=== PATIENT | female | born 1980 | race Two or more races ===

== ENCOUNTER → 2023-04-04 08:32 | Outpatient (CLI) | payer OTHER ==
[~2023-04-04 08:32] MED LIST: OSEL75CA PO; TUSSI PRES-B L480 ML PO
[2023-04-04 09:44] LABS: HEMATOCRIT 37.9 % (36.0-45.00); HEMOGLOBIN 13.3 g/dL (12.0-15.00); MEAN CELL VOLUME 84.6 fL (80.00-100.00); MEAN CORPUSCULAR HEMOGLOBIN 29.6 pg (27.00-32.0); PLATELET COUNT 254 K/uL (150-450); RED BLOOD COUNT 4.48 M/uL (4.00-6.00); RED CELL DISTRIBUTION WIDTH 12.9 % (11.5-14.5)
[2023-04-04 10:13] LABS: ALBUMIN 3.8 gm/dL (3.4-5.0); BILIRUBIN TOTAL 0.45 mg/dL (0.3-1.2); CALCIUM 8.9 mg/dL (8.5-10.1); CHOL HDL RATIO 2.8 (0-5.0); CREATININE SERUM 0.66 mg/dL (0.55-1.02); FREE TRIODOTIRONINE 2.69 pg/ml (2.18-3.98); GFR 99.19; GLOBULINA 3.4 G/DL (2.4-3.5); POTASSIUM 3.95 mEq/L (3.5-5.1); T4 TOTAL 5.36 UG/DL (4.8-13.9); TOTAL PROTEIN 7.2 gm/dL (6.4-8.2); TSH 0.789 uIU/mL (0.358-3.74)
[2023-04-04 11:14] LABS: VITAMIN D3 25 HYDROXY 21.58 ng/ml (30-120)
== END | disposition home or self-care (01) ==
LOC: LAB 08:32
PROVIDERS: ATTEND Obstetrics & Gynecology
DX: E03.8 Other specified hypothyroidism (principal); I10 Essential (primary) hypertension; E55.9 Vitamin D deficiency, unspecified; D50.8 Other iron deficiency anemias; R73.09 Other abnormal glucose; Z88.6 Allergy status to analgesic agent

== ENCOUNTER 2023-04-04 09:23 | Outpatient (CLI) | payer OTHER | END 2023-04-04 09:35 | disposition home or self-care (01) | LOC: MAMO-SONO 09:23 | PROVIDERS: ATTEND Obstetrics & Gynecology | DX: N83.201 Unspecified ovarian cyst, right side (principal); N64.4 Mastodynia; Z12.31 Encounter for screening mammogram for malignant neoplasm of breast ==

== ENCOUNTER 2024-02-05 15:43 | Emergency (ER) | payer OTHER ==
[~2024-02-05] VITALS: Ht 160 cm; Wt 85.7 kg
[2024-02-05] MEDS ORDERED: ORPHENADRINE CITRATE 30 MG/ML AMPUL IM ONE (16:45)
[2024-02-05] MEDS ORDERED: TRIAMCINOLONE ACETONIDE 40 MG/ML VIAL IM ONE (16:45)
[2024-02-05] MEDS ORDERED: TRIAMCINOLONE ACETONIDE 40 MG/ML VIAL ONE (17:18)
[2024-02-05] MEDS ORDERED: ORPHENADRINE CITRATE 30 MG/ML AMPUL ONE (17:18)
[2024-02-05] MEDS ORDERED: NORFLEX100MG PO (17:47)
[2024-02-05] MEDS ORDERED: MEDROLPACK PO (17:47)
== END 2024-02-05 17:53 | disposition home or self-care (01) ==
LOC: ER 15:44
DX: M79.641 Pain in right hand (principal); Z88.6 Allergy status to analgesic agent

== ENCOUNTER 2024-03-27 08:08 | Outpatient (CLI) | payer OTHER ==
[~2024-03-27 08:08] MED LIST changes: +MEDROLPACK PO; +NORFLEX100MG PO
[2024-03-27 09:23] LABS: C-REACTIVE PROTEIN 0.3 MG/DL (0.00-0.29)
[2024-03-31 15:10] LABS: CYCLIC CITRULLINE PEPTIDE 3 units (0-19)
[2024-04-02 10:47] LABS: ALDOLASE 2.5 U/L (3.3-10.3)
[2024-04-02 13:06] LABS: a:g ratio 1.3 (0.7-1.7); alpha 1 g 0.2 g/dL (0.0-0.4); alpha 2 0.7 g/dL (0.4-1.0); beta g 1.2 g/dL (0.7-1.3); gamma g 1.1 g/dL (0.4-1.8); globulin t 3.2 g/dL (2.2-3.9); m spike Not Observed g/dL (Not Observed); prot total 7.5 g/dL (6.0-8.5)
== END 2024-03-27 08:17 | disposition home or self-care (01) ==
LOC: LAB 08:08
DX: M15.9 Polyosteoarthritis, unspecified (principal); M06.4 Inflammatory polyarthropathy; M13.0 Polyarthritis, unspecified; M05.9 Rheumatoid arthritis with rheumatoid factor, unspecified; M32.9 Systemic lupus erythematosus, unspecified

== ENCOUNTER 2024-03-27 08:51 | Outpatient (CLI) | payer OTHER | END 2024-03-27 08:59 | disposition home or self-care (01) | LOC: RAD 08:51 | PROVIDERS: ATTEND Physical Medicine & Rehabilitation | DX: M54.17 Radiculopathy, lumbosacral region (principal); M54.14 Radiculopathy, thoracic region; M54.12 Radiculopathy, cervical region; M60.89 Other myositis, multiple sites ==

== ENCOUNTER → 2025-02-10 06:30 | Outpatient (CLI) | payer OTHER ==
[2025-02-10 07:28] LABS: BASO % 0.5 % (0.1-1.2); EOS # 0.44 (0.04-0.54); EOS % 7.7 % (0.7-7.0); LYMPH # 1.88 (1.18-3.74); LYMPH % 32.8 % (19.3-53.1); MEAN PLATELET VOLUME 10.30 fl (9.4-12.4); MONO # 0.38 (0.24-0.82); MONO % 6.6 % (4.7-12.5); NEUT # 2.98 (1.56-6.13); NEUT % 52.1 % (34.0-71.1); RED CELL DISTRIBUTION WIDTH 12.6 % (11.6-14.4)
[2025-02-10 08:06] LABS: ALT/SGPT 21.0 U/L (12-78); AST/SGOT 12.0 U/L (15-37); BILIRUBIN TOTAL 0.56 mg/dL (0.3-1.2); BUN CREA RATIO 22.0 (7.0-25.0); CHOL HDL RATIO 2.8 (0-5.0); CREATININE SERUM 0.67 mg/dL (0.55-1.02); GFR 96.52; GLOBULINA 3.2 G/DL (2.4-3.5); GLUCOSE FASTING 103.0 mg/dL (65-100); HDL 63.0 mg/dl (40-60); LDL 97.0 mg/dl (0-130); OSMOLALITY SERUM 282.0 MOSM/KG (275-295); T4 FREE 0.89 NG/ML (0.76-1.46); TSH 0.76 uIU/mL (0.358-3.74); VLDL 14.0 (0-39)
[2025-02-10 08:21] LABS: URINE APPEARANCE Clear; URINE BACTERIA 47.9 uL (0.0-1933); URINE BILIRRUBIN Negative (NEGATIVE); URINE BLOOD Large; URINE COLOR Yellow; URINE EPITHELIAL CELLS 2.1 uL (0.0-38.8); URINE GLUCOSE Negative (NEGATIVE); URINE KETONE Negative (NEGATIVE); URINE LEUKOCYTE Negative; URINE NITRATE Negative; URINE PROTEIN Negative (NEGATIVE); URINE RBC 1032.6 uL (0.0-20.8); URINE UROBILINOGEN 0.2 E.U./dl; URINE WBC 2.7 uL (0.0-23.2)
[2025-02-10 08:25] LABS: URINE CAST 0.00 uL (0.0-1.40)
== END | disposition home or self-care (01) ==
LOC: LAB 06:30
DX: E66.3 Overweight (principal); M51.06 Intervertebral disc disorders with myelopathy, lumbar region; G43.019 Migraine without aura, intractable, without status migrainosus; M79.7 Fibromyalgia; K21.9 Gastro-esophageal reflux disease without esophagitis; E55.9 Vitamin D deficiency, unspecified; R73.01 Impaired fasting glucose; R94.6 Abnormal results of thyroid function studies